=== PATIENT | male | born 1940 | race Caucasian/White ===

== ENCOUNTER 2016-11-19 10:25 | Day surgery (SDC) | payer MEDICARE, OTHER ==
[2016-11-19] MEDS ORDERED: PROPOFOL 10 MG/ML VIAL IV ONE (14:00)
[2016-11-19] MEDS ORDERED: LIDOCAINE 2% MDV (20MG/ML) 20ML VIAL IV ONE (14:00)
[2016-11-19] MEDS ORDERED: MIDAZOLAM HCL 2MG/2ML VIAL IV ONE (14:00)
--- NOTE | 2016-11-24 18:29 | Operative Note ---
DATE OF SURGERY: 11/19/2016 OPERATION: COLONOSCOPY with cold forceps polypectomy x2. PREOPERATIVE DIAGNOSIS: Personal history of colon polyps. POSTOPERATIVE DIAGNOSES: 1. Ascending colon polyp. 2. Sigmoid colon polyp. PROCEDURE: After informed consent was obtained from the patient, he was placed in the left lateral decubitus position in the endoscopy suite he was sedated and monitored by the department of anesthesia. Digital rectal examination was unremarkable. A well-lubricated [id number] colonoscope was inserted into the rectum and advanced to the cecum. Preparation quality was good. The cecum was noted by the ileocecal valve and appendiceal orifice and these were unremarkable. In the ascending colon, there was a 4 mm sessile polyp removed in piecemeal fashion with a cold forceps. Minimal bleeding was noted. The remainder of the ascending colon transverse colon, and descending colon were unremarkable. The sigmoid colon revealed a diminutive polyp removed with a cold forceps. The remainder of the sigmoid colon and rectum were unrevealing. J-turn views of the anorectum were unrevealing. The endoscope was straightened, the rectal ampulla deflated, and the endoscope was removed. RECOMMENDATIONS: I would suggest the patient resume his medications and diet. He will require repeat exam in 5 years based on pathology results. As always, thank you for allowing me to participate in the healthcare of your patients. CC: Dr. Gus HARP
== END 2016-11-19 12:34 | disposition home or self-care (01) ==
LOC: HOP 10:25
PROVIDERS: ATTEND Internal Medicine Gastroenterology
DX: Z86.010 Personal history of colon polyps (principal); D12.2 Benign neoplasm of ascending colon; K63.5 Polyp of colon; I10 Essential (primary) hypertension; E03.9 Hypothyroidism, unspecified